=== PATIENT | male | born 1950 | race Caucasian/White ===

== ENCOUNTER 2024-03-04 08:56 | Outpatient (CLI) | payer MEDICARE, SELFPAY ==
--- NOTE | 2024-03-04 10:00 | CT_ITS ---
Patient: SRUTHI THOMAS Facility:?[facility] Patient ID:?[id number] Site Patient ID:?[id number]. Site :?[id number] Study:?CT-Abdomen/Pelvis urogram w 100cc [id number]/25/2024 10:11:22 AM Ordering Physician:Ronald Valdes Final Report: INDICATION: Disorder of kidney and ureter TECHNIQUE: Volumetric helical scanning of the abdomen and pelvis was performed initially without contrast material. 100 cc of Isovue 370 contrast material were then injected IV in two 50 cc boluses 5 minutes apart. Ninety seconds following the second bolus, scanning of the abdomen and pelvis was repeated. Coronal and sagittal reconstructions were obtained. COMPARISON: PET-CT of 01/08/2024 FINDINGS: No urinary tract stone or obstruction is demonstrated. Renal parenchymal cysts are present bilaterally. The largest cyst is an exophytic lesion arising from the posterior superior left kidney, measuring 4.2 x 3.2 cm. Mild wall thickening of this cyst is demonstrated, and on image 37 of series 6, an enhancing 9 mm nodule is noted along the outer margin of this cyst. This nodule demonstrates avid uptake on the PET scan. The excretory images demonstrate no filling defect in either collecting system, either ureter or in the partially filled bladder. Mild bladder wall thickening is noted. Prostate is mild to moderately enlarged. The liver is normal in size, shape and attenuation. No bile duct dilation is evident. The spleen is within normal limits. The adrenal glands are unremarkable. The pancreas is within normal limits. No lymphadenopathy is evident. No free fluid is demonstrated. The bowel is unremarkable except for sigmoid diverticulosis. IMPRESSION: 1. Renal parenchymal cysts bilaterally with largest cyst on the left measuring 4.2 x 3.2 cm. This cyst has a mildly thickened wall and an associated 9 mm nodule which demonstrates avid uptake on PET scan. Consider MRI. 2. Mild bladder wall thickening and mild to moderate prostate enlargement. Please note that all CT scans at this facility use dose modulation, iterative reconstruction, and/or weight-based dosing when appropriate to reduce radiation dose to as low as reasonably achievable. Dictated by Jonathon Reyes MD @ 03/05/2024 9:31:39 AM Signed by:?Jonathon Reyes MD @03/05/2024 9:31:39 AM (Electronic Signature)
== END 2024-03-04 08:57 | disposition home or self-care (01) ==
LOC: CT 08:57
PROVIDERS: PCP Family Medicine; Visit Provider Internal Medicine Hematology & Oncology
DX: N28.9 Disorder of kidney and ureter, unspecified (principal); N28.1 Cyst of kidney, acquired; N40.0 Benign prostatic hyperplasia without lower urinary tract symptoms; R91.8 Other nonspecific abnormal finding of lung field; K57.30 Diverticulosis of large intestine without perforation or abscess without bleeding
CPT/HCPCS: 36415; 71250; 74178; 82565; Q9967

== ENCOUNTER 2024-04-20 09:45 | Outpatient (RCR) | payer MEDICARE, SELFPAY | END 2024-06-22 16:06 | disposition home or self-care (01) | PROVIDERS: PCP Family Medicine; Visit Provider Family Medicine | DX: M21.379 Foot drop, unspecified foot (principal); M62.81 Muscle weakness (generalized); R26.2 Difficulty in walking, not elsewhere classified; Z51.89 Encounter for other specified aftercare | CPT/HCPCS: 97110; 97116; 97162 ==

== ENCOUNTER 2024-07-19 10:39 | Outpatient (RCR) | payer MEDICARE, SELFPAY | END 2024-11-12 09:39 | disposition home or self-care (01) | PROVIDERS: PCP Family Medicine; Visit Provider Orthopaedic Surgery Orthopaedic Surgery of the Spine | DX: Z48.89 Encounter for other specified surgical aftercare (principal); R53.1 Weakness; M21.372 Foot drop, left foot; M21.371 Foot drop, right foot; R29.898 Other symptoms and signs involving the musculoskeletal system; Z51.89 Encounter for other specified aftercare | CPT/HCPCS: 97110; 97161 ==

== ENCOUNTER 2024-07-22 09:36 | Outpatient (CLI) | payer MEDICARE, SELFPAY ==
--- NOTE | 2024-07-22 10:00 | CRLHL7_ITS ---
For Patients: As a result of the Century Cures Act, medical imaging exams and procedure reports are released immediately into your electronic medical record. You may view this report before your referring provider. If you have questions, please contact your health care provider. Indication: Solitary pulmonary nodule, renal cyst Technique: CT Chest/Abd/Pelvis W/ 93CC ISOVUE 370 Please note that all CT scans at this facility use dose modulation, iterative reconstruction, and/or weight-based dosing when appropriate to reduce radiation dose to as low as reasonably achievable. Comparison: CT-PET 04/08/2024, CT urogram 03/04/2024, CT chest 03/04/2024 Findings: In the chest, the lobular noncalcified nodule within the right lower lobe is similar measuring 2.2 cm. This was PET avid on the recent CT PET April 08, 2024. Mild dependent areas of pulmonary parenchymal scarring noted. No pleural effusion or pulmonary edema. No consolidative density. Incidental pericardial recess noted. Trace pericardial fluid. No enlarged lymph nodes. Tortuosity of the aorta without dissection or aneurysm. 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 Postop changes to the left clavicle. Visualized thyroid gland unremarkable. In the abdomen, there is no suspicious intrahepatic lesion. Gallbladder is normal. No calcified stones or biliary obstruction. Spleen is normal. No adrenal lesion. Tiny cysts within the right kidney. Stable exophytic cyst arising from the posterior left kidney measuring 3.8 cm. This contains water attenuation. An adjacent solid nodule is present associated with this cyst measuring 6 millimeters, corresponding to the CT PET uptake. Other water attenuation cysts are present elsewhere within the left kidney. No hydronephrosis. Normal pancreas. No upper abdominal adenopathy. Fat filled right inguinal hernia again noted. Sigmoid diverticulosis. No diverticulitis. No bowel obstruction, free air, free fluid or abscess. No enlarged pelvic or inguinal lymph nodes. Bridging osteophyte formation across the sacroiliac joints. Posterior fusion hardware L2-3. Degenerative changes. No acute fracture. Impression: Similar size and morphology of the 2.2 cm right lower lobe pulmonary nodule. Unchanged cystic lesion arising from the right kidney posteriorly with an adjacent 6 millimeter solid nodule. Please note that all CT scans at this facility use dose modulation, iterative reconstruction, and/or weight-based dosing when appropriate to reduce radiation dose to as low as reasonably achievable. Dictated by Schuyler Santiago MD @ 07/23/2024 11:41:22 AM (Electronically Signed)
[2024-07-22 10:17] LABS: Creatinine* 1.4 mg/dL (0.5-1.5); Estimated Glomerular Filt Rate 53 ml/min
== END 2024-07-22 09:37 | disposition home or self-care (01) ==
LOC: CT 09:36
PROVIDERS: PCP Family Medicine; Visit Provider Internal Medicine Hematology & Oncology
DX: R91.1 Solitary pulmonary nodule (principal); N28.1 Cyst of kidney, acquired
CPT/HCPCS: 36415; 71260; 74177; 82565; Q9967

== ENCOUNTER 2024-07-28 15:00 | Outpatient (RCR) | payer MEDICARE, SELFPAY ==
--- NOTE | 2024-02-13 15:40 | ONC.NURNOTE ---
PET scan order and CT urogram order faxed to referrals at [facility]- Germ Drier spoke to Marge Clinical coordinator to determine process for scheduling. Pt will be scheduled once orders received. Pt updated.
[2024-04-14 10:14] LABS: PSA Diagnostic* 3.12 ng/mL (0.10-4.00)
--- NOTE | 2024-05-28 12:43 | ONC.NURNOTE ---
Patient appealed his denial for PET scan on 05/11/2024 with [facility]. Durability Engineer recommended that patient call Priyanka, Customer Service Billing at [phone]. Patient on vacation when called 05/26/2024, so unable to give claim number.
--- NOTE | 2024-07-14 13:52 | ONC.NURNOTE ---
Patient called today to report that his PET Scan tomorrow is not approved by insurance and it needs a peer to peer review. RN told patient she would look into it and call him back. Spoke with Ami Fraire RN who stated that she received the peer to peer request this morning and Dr. Stanton would address it today. Ami asked RN to call patient back and update him that they are trying to get peer to peer done today and to not go the PET scan unless he hears that insurance will cover it. RN attempted to call patient back. No answer. LVM [facility] to [facility].
--- NOTE | 2024-07-15 13:51 | ONC.NURNOTE ---
PET denied after peer to peer with Dr. Stanton. CT scan then ordered. Pt notified that PET denied, shared medical called to cancel PET scan on 07/22/24.
== END 2024-08-09 23:59 | disposition home or self-care (01) ==
LOC: CCIC 15:00
PROVIDERS: PCP Family Medicine; Visit Provider Internal Medicine Hematology & Oncology
DX: R91.1 Solitary pulmonary nodule (principal)
CPT/HCPCS: 36415; 84153; 99203; 99204; 99214; G0463

== ENCOUNTER 2024-08-10 08:17 | Outpatient (RCR) | payer MEDICARE, SELFPAY | END 2025-02-06 23:59 | disposition home or self-care (01) | LOC: CCIC 08:17 | PROVIDERS: PCP Family Medicine; Visit Provider Internal Medicine Hematology & Oncology | DX: R91.1 Solitary pulmonary nodule (principal); N28.1 Cyst of kidney, acquired; N42.89 Other specified disorders of prostate; R31.9 Hematuria, unspecified; N28.9 Disorder of kidney and ureter, unspecified | CPT/HCPCS: 99213; G0463 ==